=== PATIENT | male | born 1975 | race African-American/Black ===

== ENCOUNTER 2025-09-07 17:16 | Inpatient (IN) | payer MEDICARE, OTHER ==
[~2025-09-07] VITALS: Ht 172.7 cm; Wt 65.1 kg
[2025-09-07 18:32] LABS: BASOPHILS % 1.0 % (0.0-1.0); EOSINOPHILS % 1.4 % (0.0-6.0); LYMPHOCYTES % 44.2 % (18.0-39.1); MONOCYTES % 5.7 % (4.4-11.3); NEUTROPHILS % 47.3 % (38.7-80.0); RED CELL DISTRIBUTION WIDTH 15.5 % (11.7-14.4)
[2025-09-07 18:49] VITALS: TEMP 98.3
[2025-09-07 19:03] LABS: EST GLOMERULAR FILTRATION RATE 67.0 ML/MIN (>=60)
[2025-09-07 19:55] LABS: BASOPHILS % (MANUAL) 1 % (0-1.5); LYMPHOCYTES % (MANUAL) 42 % (19-48); MONOCYTES % (MANUAL) 6 % (3.4-9.0); NEUTROPHILS % (MANUAL) 48 % (40-74); REACTIVE LYMPHOCYTES 3
[2025-09-07 19:56] LABS: PLATELET ESTIMATE SLIGHTLY INCREASED; PLATELET MORPHOLOGY COMMENT NORMAL; RBC MORPHOLOGY COMMENT NORMAL
[2025-09-07 20:05] VITALS: PULSE 89; RESP 19
[2025-09-07 20:58] VITALS: BP 152/68; PULSE 90; RESP 18; TEMP 97.9; O2SAT 99
[2025-09-07] MEDS ORDERED: SEVOFLURANE INHAL SOLN 250 ML PEN BTL ONE (22:06)
[2025-09-07] MEDS: ONDANSETRON HCL INJ 2MG/ML 2ML 2 MG/ML VIAL IV PRN (22:35)
[2025-09-07] MEDS: Morphine 4mg INJECTION 4 MG/ML INJ IV PRN (22:35)
[2025-09-07] MEDS: SODIUM CHLORIDE 0.9% 1000ML 1,000 ML IV SCH (22:42)
[2025-09-07] MEDS ORDERED: BIKTARVY 30-121 EACH (22:52)
[2025-09-07] MEDS ORDERED: LANTUS 3ML100 UNITS/ (22:52)
[2025-09-07 22:58] VITALS: BP 152/68; PULSE 90; RESP 18; TEMP 97.9; O2SAT 99
[2025-09-07] MEDS ORDERED: IMODIUM A-1 MG/7.5 M PO (23:18)
[2025-09-08] VITALS (8 sets, daily range): BP systolic 137–155; BP diastolic 77–96; PULSE 77–93; RESP 16–20; TEMP 97.7–98.2; O2SAT 95–100
[2025-09-08 05:38] LABS: BASOPHILS % 0.9 % (0.0-1.0); EOSINOPHILS % 1.6 % (0.0-6.0); LYMPHOCYTES % 44.8 % (18.0-39.1); MONOCYTES % 6.9 % (4.4-11.3); NEUTROPHILS % 45.3 % (38.7-80.0); RED CELL DISTRIBUTION WIDTH 15.5 % (11.7-14.4)
[2025-09-08 06:04] LABS: EST GLOMERULAR FILTRATION RATE 60.0 ML/MIN (>=60)
[2025-09-08 08:53] LABS: LYMPHOCYTES % (MANUAL) 38 % (19-48); MONOCYTES % (MANUAL) 9 % (3.4-9.0); NEUTROPHILS % (MANUAL) 53 % (40-74)
[2025-09-08 08:54] LABS: PLATELET ESTIMATE ADEQUATE; PLATELET MORPHOLOGY COMMENT NORMAL
[2025-09-08] MEDS ORDERED: ACETAMINOPHEN 325 MG TAB PO PRN (09:15)
[2025-09-08] MEDS: HYDROCODONE/APAP 5MG-325MG TAB PO PRN (09:49)
[2025-09-08] MEDS: INSULIN GLARGINE 100 UNITS/ML VIAL SQ ONE (09:53)
[2025-09-08] MEDS: INSULIN LISPRO 100 UNIT/1 ML 3ML VIAL SQ SCH (11:46)
[2025-09-08] MEDS: GABAPENTIN 100 MG CAP PO SCH (15:00)
[2025-09-08] MEDS: INSULIN GLARGINE 100 UNITS/ML VIAL SQ SCH (21:28)
[2025-09-08] MEDS ORDERED: HYDRALAZINE HCL 25 MG TAB PO PRN (23:00)
[2025-09-08] MEDS: NIFEDIPINE CR 30 MG TAB PO ONE (23:08)
[2025-09-09] VITALS (7 sets, daily range): BP systolic 124–134; BP diastolic 78–91; PULSE 83–85; RESP 18–20; TEMP 97.4–98.4; O2SAT 98–100
[2025-09-09] MEDS: NIFEDIPINE CR 30 MG TAB PO SCH (05:34)
[2025-09-09 13:55] LABS: BASOPHILS % 0.7 % (0.0-1.0); EOSINOPHILS % 2.0 % (0.0-6.0); LYMPHOCYTES % 34.0 % (18.0-39.1); MONOCYTES % 6.6 % (4.4-11.3); NEUTROPHILS % 56.5 % (38.7-80.0); RED CELL DISTRIBUTION WIDTH 15.5 % (11.7-14.4)
[2025-09-09 14:28] LABS: % IRON SATURATION 9.0 % (15-50); EST GLOMERULAR FILTRATION RATE 70.0 ML/MIN (>=60); PHOSPHORUS 4.1 MG/DL (2.3-4.7)
[2025-09-09] MEDS: INSULIN GLARGINE 100 UNITS/ML VIAL SQ SCH (21:46)
[2025-09-10] VITALS (7 sets, daily range): BP systolic 129–170; BP diastolic 83–101; PULSE 74–88; RESP 16–21; TEMP 97.2–98.4; O2SAT 99–100
[2025-09-10] MEDS: DEXTROSE 50% SYRINGE 50 ML IV PRN
[2025-09-10] MEDS: Vancomycin IV 1 GM in SODIUM CHLORIDE 0.9% 250ML 250 ML IV SCH (09:12)
[2025-09-11] VITALS (8 sets, daily range): BP systolic 116–157; BP diastolic 84–99; PULSE 74–94; RESP 18–19; TEMP 97.5–97.9; O2SAT 100
[2025-09-11] MEDS: INSULIN GLARGINE 100 UNITS/ML VIAL SQ SCH (21:21)
[2025-09-11] MEDS ORDERED: SODIUM CHLORIDE 0.9% 0 ML ONE (23:02)
[2025-09-11] MEDS ORDERED: IOPAMIDOL 370 MG/ML 100 ML INFUS..BTL INJ ONE (23:02)
[2025-09-12 01:21] VITALS: BP 97/61; PULSE 91; RESP 18; TEMP 97.7; O2SAT 100
[2025-09-12 04:41] VITALS: BP 119/85; PULSE 83; RESP 18; TEMP 97.7; O2SAT 100
[2025-09-12 06:12] LABS: BASOPHILS % 1.4 % (0.0-1.0); EOSINOPHILS % 2.0 % (0.0-6.0); LYMPHOCYTES % 41.6 % (18.0-39.1); MONOCYTES % 6.8 % (4.4-11.3); NEUTROPHILS % 47.8 % (38.7-80.0); RED CELL DISTRIBUTION WIDTH 15.7 % (11.7-14.4)
[2025-09-12 06:42] LABS: EST GLOMERULAR FILTRATION RATE 71.0 ML/MIN (>=60)
[2025-09-12] MEDS ORDERED: SODIUM CHLORIDE 0.9% 100 ML ONE (08:19)
[2025-09-12] MEDS ORDERED: IOPAMIDOL 370 MG/ML 100 ML INFUS..BTL INJ ONE (08:19)
[2025-09-12 12:00] VITALS: BP 131/83; PULSE 82; RESP 18; TEMP 97.4; O2SAT 100
[2025-09-12 16:00] VITALS: BP 163/95; PULSE 81; RESP 19; TEMP 97.9; O2SAT 100
[2025-09-12] MEDS: INSULIN LISPRO 100 UNIT/1 ML 3ML VIAL SQ SCH (16:30)
[2025-09-12 20:00] VITALS: BP 186/88; PULSE 93; RESP 16; TEMP 97.7; O2SAT 100
[2025-09-12 21:00] VITALS: BP 186/88; PULSE 93; RESP 16; TEMP 97.7; O2SAT 100
[2025-09-12] MEDS: INSULIN GLARGINE 100 UNITS/ML VIAL SQ SCH (21:00)
[2025-09-13] VITALS (8 sets, daily range): BP systolic 127–153; BP diastolic 83–97; PULSE 83–93; RESP 18; TEMP 97.3–98.4; O2SAT 100
[2025-09-13] MEDS: INSULIN GLARGINE 100 UNITS/ML VIAL SQ SCH (21:53)
[2025-09-14 03:45] VITALS: BP 150/92; PULSE 90; RESP 18; TEMP 98.2; O2SAT 100
[2025-09-14] MEDS ORDERED: MIDAZOLAM HCL 2 MG/2 ML VIAL ONE (06:37)
[2025-09-14] MEDS ORDERED: FENTANYL CITRATE/PF 100MCG/2 ML INJ ONE (06:37)
[2025-09-14] MEDS ORDERED: PROPOFOL IV EMULSION 10 MG/ML 20 ML VIAL ONE (06:37)
[2025-09-14] MEDS ORDERED: LIDOCAINE HCL 2% LOCAL INJ 5 ML SDV VIAL INJ ONE (06:45)
[2025-09-14] MEDS ORDERED: ONDANSETRON HCL INJ 2MG/ML 2ML 2 MG/ML VIAL ONE (07:18)
[2025-09-14 10:33] VITALS: BP 171/98; PULSE 74; RESP 18; TEMP 97.8; O2SAT 100
[2025-09-14 18:26] VITALS: BP 155/91; PULSE 84; RESP 18; TEMP 97.8; O2SAT 100
[2025-09-14 19:22] VITALS: BP 140/90; PULSE 87; RESP 18; TEMP 98.1; O2SAT 100
[2025-09-14 20:00] VITALS: BP 139/78; PULSE 92; RESP 20; TEMP 99.3; O2SAT 100
[2025-09-14] MEDS: Morphine 4mg INJECTION 4 MG/ML INJ IV PRN (20:43)
[2025-09-15] VITALS (8 sets, daily range): BP systolic 133–160; BP diastolic 75–94; PULSE 90–96; RESP 18–20; TEMP 98.8–99.4; O2SAT 99–100
[2025-09-15 08:46] LABS: BASOPHILS % 0.9 % (0.0-1.0); EOSINOPHILS % 1.4 % (0.0-6.0); LYMPHOCYTES % 28.0 % (18.0-39.1); MONOCYTES % 8.1 % (4.4-11.3); NEUTROPHILS % 61.4 % (38.7-80.0); RED CELL DISTRIBUTION WIDTH 16.3 % (11.7-14.4)
[2025-09-15 09:09] LABS: EST GLOMERULAR FILTRATION RATE 61.0 ML/MIN (>=60)
[2025-09-15] MEDS: HYDROCODONE/APAP 5MG-325MG TAB PO PRN (09:16)
[2025-09-15] MEDS: INSULIN LISPRO 100 UNIT/1 ML 3ML VIAL SQ SCH (16:30)
[2025-09-15] MEDS: INSULIN GLARGINE 100 UNITS/ML VIAL SQ SCH (21:00)
[2025-09-16] VITALS (7 sets, daily range): BP systolic 147–172; BP diastolic 86–101; PULSE 68–96; RESP 18–19; TEMP 98.2–99.4; O2SAT 100
[2025-09-16 06:46] LABS: BASOPHILS % 0.9 % (0.0-1.0); EOSINOPHILS % 2.0 % (0.0-6.0); LYMPHOCYTES % 34.6 % (18.0-39.1); MONOCYTES % 9.8 % (4.4-11.3); NEUTROPHILS % 52.6 % (38.7-80.0); RED CELL DISTRIBUTION WIDTH 16.4 % (11.7-14.4)
[2025-09-16 06:59] LABS: EST GLOMERULAR FILTRATION RATE 64.0 ML/MIN (>=60)
[2025-09-16] MEDS: DOXYCYCLINE HYCLATE TABLET 100 MG TAB PO SCH (09:06)
[2025-09-16] MEDS: MUPIROCIN 2% OINT 22 GM TUBE TOP ONE (10:47)
[2025-09-16] MEDS: INSULIN LISPRO 100 UNIT/1 ML 3ML VIAL SQ SCH (16:38)
[2025-09-16] MEDS: INSULIN GLARGINE 100 UNITS/ML VIAL SQ SCH (20:59)
[2025-09-17] VITALS (7 sets, daily range): BP systolic 128–168; BP diastolic 70–96; PULSE 82–93; RESP 17–20; TEMP 98–98.6; O2SAT 100
[2025-09-17] MEDS: INSULIN GLARGINE 100 UNITS/ML VIAL SQ SCH (20:15)
[2025-09-18] VITALS: BP 133/92; PULSE 84; RESP 17; TEMP 98.3; O2SAT 100
[2025-09-18 04:00] VITALS: BP 122/79; PULSE 78; RESP 17; TEMP 97.9; O2SAT 100
[2025-09-18 07:47] VITALS: BP 133/84; PULSE 80; RESP 18; TEMP 98.2; O2SAT 100
[2025-09-18 09:00] VITALS: BP 133/84; PULSE 80; RESP 18; TEMP 98.2; O2SAT 100
[2025-09-18 11:49] VITALS: BP 121/73; PULSE 83; RESP 19; TEMP 98.5; O2SAT 99
[2025-09-18] MEDS: MUPIROCIN 2% OINT 22 GM TUBE TOP SCH (12:09)
[2025-09-18 15:40] VITALS: BP 145/92; PULSE 78; RESP 19; TEMP 98.2; O2SAT 100
[2025-09-18] MEDS: INSULIN LISPRO 100 UNIT/1 ML 3ML VIAL SQ SCH (17:12)
== END 2025-09-18 18:45 | DRG 240 ==
LOC: ER 17:51 → ERHOLD 19:41 → MED/SURG2 22:17
PROVIDERS: ADMIT Internal Medicine; ATTEND Internal Medicine
PROC: 0Y6M0Z9 Detachment at Right Foot, Partial 1st Ray, Open Approach (ICD-10-PCS; 2025-09-14)
PROC: 0Y6M0ZB Detachment at Right Foot, Partial 2nd Ray, Open Approach (ICD-10-PCS; 2025-09-14)
PROC: 0Y6M0ZC Detachment at Right Foot, Partial 3rd Ray, Open Approach (ICD-10-PCS; 2025-09-14)
PROC: 0Y6M0ZD Detachment at Right Foot, Partial 4th Ray, Open Approach (ICD-10-PCS; 2025-09-14)
PROC: 0Y6M0ZF Detachment at Right Foot, Partial 5th Ray, Open Approach (ICD-10-PCS; principal; 2025-09-14 06:51)
DX: E11.52 Type 2 diabetes mellitus with diabetic peripheral angiopathy with gangrene (principal); D84.9 Immunodeficiency, unspecified; L03.115 Cellulitis of right lower limb; M84.474A Pathological fracture, right foot, initial encounter for fracture; M86.171 Other acute osteomyelitis, right ankle and foot; E11.69 Type 2 diabetes mellitus with other specified complication; E11.621 Type 2 diabetes mellitus with foot ulcer; L97.519 Non-pressure chronic ulcer of other part of right foot with unspecified severity; E11.65 Type 2 diabetes mellitus with hyperglycemia; E11.628 Type 2 diabetes mellitus with other skin complications; R53.81 Other malaise; R01.1 Cardiac murmur, unspecified; D63.8 Anemia in other chronic diseases classified elsewhere; Z21 Asymptomatic human immunodeficiency virus [HIV] infection status; E11.42 Type 2 diabetes mellitus with diabetic polyneuropathy; Z79.4 Long term (current) use of insulin; Z79.899 Other long term (current) drug therapy; Z72.0 Tobacco use
CPT/HCPCS: 36415; 75635; 80048; 80053; 80202; 82607; 82746; 82948; 83036; 83540; 83735; 84100; 84439; 84443; 84466; 85025; 87071; 87205; 88304; 88307; 88311; 93925; 96372; 99284; J1815; J2003; J2250; J2270; J2405; J2543; J3373; J7030; J7050; J7799; Q9967